=== PATIENT | female | born 1985 | race Caucasian/White ===

== ENCOUNTER 2016-09-14 04:09 | Observation (INO) | payer OTHER ==
[~2016-09-14] VITALS: Ht 177.8 cm; Wt 78.5 kg
[2016-09-14 08:57] VITALS: BP 121/70; RESP 18; TEMP 97.8
== END 2016-09-14 09:05 | disposition home or self-care (01) ==
LOC: SPU 04:09
PROVIDERS: ADMIT Specialist; ATTEND Specialist
DX: O46.93 Antepartum hemorrhage, unspecified, third trimester (principal); Z36 Encounter for antenatal screening of mother; Z3A.39 39 weeks gestation of pregnancy
CPT/HCPCS: 76815; 81002; G0378

== ENCOUNTER 2016-09-14 20:20 | Inpatient (IN) | payer OTHER ==
[~2016-09-14] VITALS: Ht 177.8 cm; Wt 78.5 kg
[2016-09-14] MEDS ORDERED: LR 500 ML IV ONE (20:34)
[2016-09-14] MEDS ORDERED: LR 1,000 ML IV ONE (20:34)
[2016-09-14] MEDS ORDERED: LR 1,000 ML IV SCH (20:34)
[2016-09-14] MEDS ORDERED: OXYTOCIN/NORMAL SALINE 1,000 ML IV SCH (20:34)
[2016-09-14] MEDS ORDERED: NALBUPHINE HCL 10 MG/ML AMP IVP PRN (20:45)
[2016-09-14] MEDS ORDERED: TERBUTALINE SULFATE 1 MG/ML VIAL SUBCUT ONE (20:45)
[2016-09-14] MEDS ORDERED: AMPICILLIN SODIUM 2 GM in NS 100 ML IV ONE (20:45)
[2016-09-14] MEDS ORDERED: AMPICILLIN SODIUM 1 GM in NS 50 ML IV SCH (23:00)
[2016-09-15] MEDS ORDERED: AMPICILLIN SODIUM 2 GM VIAL ONE (04:55)
== END 2016-09-14 21:40 | disposition home or self-care (01) | DRG 781 ==
LOC: SPU 20:20
PROVIDERS: ADMIT Specialist; ATTEND Specialist
DX: O99.820 Streptococcus B carrier state complicating pregnancy (principal); O46.93 Antepartum hemorrhage, unspecified, third trimester; Z3A.39 39 weeks gestation of pregnancy; Z91.018 Allergy to other foods
CPT/HCPCS: 81002-TC; J0290

== ENCOUNTER 2016-09-15 04:20 | Inpatient (IN) | payer OTHER ==
[~2016-09-15] VITALS: Ht 177.8 cm; Wt 77.1 kg
[2016-09-15] MEDS ORDERED: LR 1,000 ML IV SCH (04:22)
[2016-09-15] MEDS ORDERED: LR 1,000 ML IV ONE (04:22)
[2016-09-15] MEDS ORDERED: OXYTOCIN/NORMAL SALINE 1,000 ML IV SCH (04:22)
[2016-09-15] MEDS ORDERED: TERBUTALINE SULFATE 1 MG/ML VIAL SUBCUT ONE ×2 (04:30→06:00)
[2016-09-15] MEDS ORDERED: NALBUPHINE HCL 10 MG/ML AMP IVP PRN (04:30)
[2016-09-15] MEDS ORDERED: NALBUPHINE HCL 10 MG/ML AMP IM PRN (04:30)
[2016-09-15 04:49] VITALS: BP_SYST 120
[2016-09-15] MEDS ORDERED: OXYTOCIN/NORMAL SALINE 1,000 ML IV ONE ×2 (04:54→10:56)
[2016-09-15 04:57] LABS: BASOPHILS % (AUTO) 0.2 % (0.0-2.0); EOSINOPHILS % (AUTO) 0.2 % (0.0-4.0); HEMATOCRIT 33.7 % (36-48); HEMOGLOBIN 11.3 g/dL (12.0-16.0); LYMPHOCYTES # (AUTO) 1.2 K/uL (1.0-5.5); LYMPHOCYTES % (AUTO) 8.9 % (20.5-51.5); MEAN CORPUSCULAR HEMOGLOBIN 30 pg (27-31); MEAN CORPUSCULAR HGB CONC 34 % (32-36); MEAN CORPUSCULAR VOLUME 89 fL (79.0-98.0); MONOCYTES # (AUTO) 0.4 K/uL (0.0-1.0); MONOCYTES % (AUTO) 2.7 % (1.7-9.3); NEUTROPHILS # (AUTO) 12.4 K/uL (1.8-7.7); PLATELET COUNT (AUTO) 210 K/uL (130-430); RED BLOOD CELL COUNT(AUTO) 3.77 MIL/uL (4.2-6.2); RED CELL DISTRIBUTION WIDTH 13.1 % (9.0-15.0)
[2016-09-15] MEDS ORDERED: FENT2mCg/mL-ROPIVA0.2%/NS EPID 150 ML EP ONE (05:26)
[2016-09-15] MEDS ORDERED: FENT2mCg/mL-ROPIVA0.2%/NS EPID 150 ML EP SCH (05:26)
[2016-09-15] MEDS ORDERED: AMPICILLIN SODIUM 2 GM in NS 100 ML IV ONE (06:00)
[2016-09-15] MEDS ORDERED: AMPICILLIN SODIUM 1 GM in NS 50 ML IV SCH (10:00)
[2016-09-15] MEDS ORDERED: DOCUSATE SODIUM 100 MG CAPSULE PO PRN (11:00)
[2016-09-15] MEDS ORDERED: LANOLIN 7 GM OINT. TP PRN (11:00)
[2016-09-15] MEDS ORDERED: GLYCERIN/WITCH HAZEL (TUCKS PADS) TP PRN (11:00)
[2016-09-15] MEDS ORDERED: HYDROCORTISONE 0.5%, 28.35 GM TOPICAL CREAM TP PRN (11:00)
[2016-09-15] MEDS ORDERED: OXYCODONE/ACETAMINOPHEN 5-325 TABLET PO PRN (11:00)
[2016-09-15] MEDS ORDERED: METHYLERGONOVINE MALEATE 0.2 MG TABLET PO PRN (11:00)
[2016-09-15] MEDS ORDERED: ANUSOL 1 EA SUPP.RECT (PREPARATION H) RC PRN (11:00)
[2016-09-15] MEDS ORDERED: HYDROcodone/ACETAMIN 5-325 MG TAB (NORCO/ VICODIN) PO PRN (11:00)
[2016-09-15] MEDS ORDERED: DERMOPLAST SPRAY TP PRN (11:00)
[2016-09-15] MEDS: IBUPROFEN 600 MG TABLET PO SCH ×3 (12:32→23:35)
[2016-09-15] MEDS: OXYCODONE/ACETAMINOPHEN 5-325 TABLET PO PRN (21:00)
[2016-09-16] MEDS: IBUPROFEN 600 MG TABLET PO SCH ×2 (05:34→12:37)
[2016-09-16 07:16] LABS: BASOPHILS % (AUTO) 0.3 % (0.0-2.0); EOSINOPHILS # (AUTO) 0.1 K/uL (0.0-0.4); EOSINOPHILS % (AUTO) 1.1 % (0.0-4.0); HEMATOCRIT 26.3 % (36-48); HEMOGLOBIN 8.7 g/dL (12.0-16.0); LYMPHOCYTES # (AUTO) 2.7 K/uL (1.0-5.5); LYMPHOCYTES % (AUTO) 23.7 % (20.5-51.5); MEAN CORPUSCULAR HEMOGLOBIN 30 pg (27-31); MEAN CORPUSCULAR HGB CONC 33 % (32-36); MEAN CORPUSCULAR VOLUME 90 fL (79.0-98.0); MONOCYTES # (AUTO) 0.5 K/uL (0.0-1.0); MONOCYTES % (AUTO) 4.8 % (1.7-9.3); NEUTROPHILS % (AUTO) 70.1 % (40.0-70.0); PLATELET COUNT (AUTO) 169 K/uL (130-430); RED BLOOD CELL COUNT(AUTO) 2.93 MIL/uL (4.2-6.2); RED CELL DISTRIBUTION WIDTH 13.8 % (9.0-15.0); WHITE BLOOD COUNT (AUTO) 11.3 K/uL (4.8-10.8)
[2016-09-16] MEDS: OXYCODONE/ACETAMINOPHEN 5-325 TABLET PO PRN (09:49)
[2016-09-16] MEDS ORDERED: LIDOCAINE PF 2%, 200 MG/10 ML AMPUL.LUER (EPIDURAL) INJ ONE (15:58)
== END 2016-09-16 15:25 | disposition home or self-care (01) | DRG 774 ==
LOC: SPU 04:20
PROVIDERS: ADMIT Specialist; ATTEND Specialist
PROC: 10D07Z6 Extraction of Products of Conception, Vacuum, Via Natural or Artificial Opening (ICD-10-PCS; principal; 2016-09-15)
PROC: 3E0S3CZ (ICD-10-PCS; 2016-09-15)
PROC: 00HU33Z Insertion of Infusion Device into Spinal Canal, Percutaneous Approach (ICD-10-PCS; 2016-09-15)
DX: O99.824 Streptococcus B carrier state complicating childbirth (principal); O67.8 Other intrapartum hemorrhage; Z37.0 Single live birth; Z3A.40 40 weeks gestation of pregnancy; Z91.018 Allergy to other foods
CPT/HCPCS: 36415; 81002-TC; 85025; 86592; 86886; 86900; 86901; 88307; 94760; J0290; J2001; J2590; J3010